=== PATIENT | female | born 1950 | race Caucasian/White ===

== ENCOUNTER → 2018-02-22 | Outpatient (CLI) | payer OTHER ==
--- NOTE | 2018-02-22 16:44 | RAD ---
Indications: Patient fell last Wednesday in mud and twisted foot and ankle. Pain and bruising. Three-view left foot study: No acute fracture or dislocation or osteolytic process is seen. Three-view left ankle study: No acute fracture or dislocation or osteolytic process is seen. The mortise ankle joint is intact. IMPRESSION: No acute fracture. Electronically signed by: Marvel Acuna MD (02/22/2018 4:41 PM) [facility]-RM[facility]
--- NOTE | 2018-02-22 16:44 | RAD ---
Indications: Patient fell last Wednesday in mud and twisted foot and ankle. Pain and bruising. Three-view left foot study: No acute fracture or dislocation or osteolytic process is seen. Three-view left ankle study: No acute fracture or dislocation or osteolytic process is seen. The mortise ankle joint is intact. IMPRESSION: No acute fracture. Electronically signed by: Marvel Acuna MD (02/22/2018 4:41 PM) [facility]
--- NOTE | 2018-02-22 16:45 | RAD ---
Three-view left shoulder study Clinical indications: Patient fell last Wednesday and landed on left shoulder. Left shoulder pain. FINDINGS: No AC joint separation is seen. No acute fracture or dislocation or osteolytic process is evident. IMPRESSION: No acute fracture. Electronically signed by: Marvel Acuna MD (02/22/2018 4:41 PM) [facility]-H[facility]
== END | disposition home or self-care (01) ==
LOC: RAD 14:19
PROVIDERS: ATTEND Nurse Practitioner
DX: S93.402A Sprain of unspecified ligament of left ankle, initial encounter (principal); M25.572 Pain in left ankle and joints of left foot; M25.512 Pain in left shoulder; W19.XXXA Unspecified fall, initial encounter; Y93.89 Activity, other specified; Y92.89 Other specified places as the place of occurrence of the external cause; Y99.8 Other external cause status
CPT/HCPCS: 73030; 73610; 73630

== ENCOUNTER 2021-09-16 09:51 | Observation (INO) | payer OTHER, MEDICAID ==
[~2021-09-16] VITALS: Ht 154.9 cm; Wt 118.6 kg
--- NOTE | 2021-09-16 10:24 | PHYS DOC ---
Past Medical History Past Surgical History: Other Additional Past Surgical Histo: minor biopsies Adult General Chief Complaint Chief Complaint: WEAKNESS/GENERALIZED HPI HPI Patient is a 71 year old female who presents with generalized weakness. The patient lives alone and states she has had trouble going about daily activities for the last 24 hours. She has been able to ambulate from her living room or bedroom to the bathroom but has to rest before trying to go back into with either her living room or bedroom. She has had put a bit of difficulty going ev en a short distance. She does not feel short of breath, and she does not have any muscle aches or pains. She states that her muscles just feel very weak. She is not any recent trauma. No fever, chest pain, shortness of breath, cough, nausea, vomiting or abdominal pain. She started losartan fairly recently otherwise no new meds. Review of Systems Review of Systems Constitutional: Denies fever Eyes: Denies change in visual acuity or eye pain HENT: Denies sore throat Respiratory: Reports some shortness of breath with exertion, none at rest Cardiovascular: Denies chest pain GI: Denies abd pain : Denies dysuria Musculoskeletal: Denies back or extremity injury Integument: Denies rash or skin lesions Neurologic: Denies headache, focal weakness or sensory changes All other systems were reviewed and found to be within normal limits, except as documented in this note. Current Medications Current Medications Current Medications Medications (Trade) Dose Ordered Sig/[facility] Start Time Stop Time Status Last Admin Dose Admin Sodium Chloride 1,000 ml @ 1,000 mls/hr 1X ONCE 09/16/21 10:30 09/16/21 11:29 DC 09/16/21 11:05 1,000 MLS/HR Allergies Allergies Allergies Coded Allergies Type Severity Reaction Last Updated Verified caffeine Adverse Reaction Intermediate MIGRAINE 09/16/21 Yes codeine Adverse Reaction Intermediate MIGRAINE 09/16/21 Yes Physical Exam Physical Exam Constitutional: Well developed, well nourished, no acute distress, non-toxic appearance. HENT: Normocephalic, atraumatic, bilateral external ears normal, mucosa moist, nose normal. Eyes: EOMI, conjunctiva normal, no discharge. Neck: Normal range of motion, supple, no stridor, no meningeal signs. Cardiovascular: Regular rate and rhythm Lungs & Thorax: Bilateral breath sounds clear to auscultation Abdomen: Soft, no tenderness or obvious masses Skin: Warm, dry, no erythema, no rash. Extremities: No tenderness, no cyanosis, no clubbing, ROM intact, no edema. Neurologic: Alert and oriented, normal motor function, normal sensory function, no focal deficits noted. Psychologic: Affect normal, judgement normal, mood normal. Current Patient Data Vital Signs Vital Signs Date Time Temp Pulse Resp B/P (MAP) Pulse Ox O2 Delivery O2 Flow Rate FiO2 09/16/21 13:26 142/70 (94) Room Air 09/16/21 12:56 89 09/16/21 09:57 98.7 20 98 98.7 Lab Values Laboratory Tests Test 09/16/21 11:00 09/16/21 11:20 09/16/21 14:11 White Blood Count 24.5 x10^3/uL (4.0-11.0) H Red Blood Count 3.39 x10^6/uL (3.50-5.40) L Hemoglobin 9.6 g/dL (12.0-15.5) L Hematocrit 30.3 % (36.0-47.0) L Mean Corpuscular Volume 89 fL (79-100) Mean Corpuscular Hemoglobin 28 pg (25-35) Mean Corpuscular Hemoglobin Concent 32 g/dL (31-37) Red Cell Distribution Width 15.8 % (11.5-14.5) H Platelet Count 372 x10^3/uL (140-400) Neutrophils (%) (Auto) 73 % (31-73) Lymphocytes (%) (Auto) 20 % (24-48) L Monocytes (%) (Auto) 6 % (0-9) Eosinophils (%) (Auto) 0 % (0-3) Basophils (%) (Auto) 1 % (0-3) Neutrophils # (Auto) 18.0 x10^3/uL (1.8-7.7) H Lymphocytes # (Auto) 4.9 x10^3/uL (1.0-4.8) H Monocytes # (Auto) 1.4 x10^3/uL (0.0-1.1) H Eosinophils # (Auto) 0.0 x10^3/uL (0.0-0.7) Basophils # (Auto) 0.2 x10^3/uL (0.0-0.2) Segmented Neutrophils % 71 % (35-66) H Band Neutrophils % 3 % (0-9) Lymphocytes % 19 % (24-48) L Monocytes % 7 % (0-10) Platelet Estimate Adequate (ADEQUATE) Anisocytosis Slight Prothrombin Time 14.0 SEC (11.7-14.0) Prothrombin Time INR 1.1 (0.8-1.1) Activated Partial Thromboplast Time 32 SEC (24-38) D-Dimer (Tori) 0.67 ug/mlFEU (0.00-0.50) H Sodium Level 142 mmol/L (136-145) Potassium Level 5.0 mmol/L (3.5-5.1) Chloride Level 105 mmol/L (98-107) Carbon Dioxide Level 25 mmol/L (21-32) Anion Gap 12 (6-14) Blood Urea Nitrogen 55 mg/dL (7-20) H Creatinine 1.6 mg/dL (0.6-1.0) H Estimated GFR (Cockcroft-Gault) 31.9 BUN/Creatinine Ratio 34 (6-20) H Glucose Level 89 mg/dL (70-99) Lactic Acid Level 2.0 mmol/L (0.4-2.0) Calcium Level 9.7 mg/dL (8.5-10.1) Magnesium Level 2.2 mg/dL (1.8-2.4) Total Bilirubin 0.2 mg/dL (0.2-1.0) Aspartate Amino Transferase (AST) 10 U/L (15-37) L Alanine Aminotransferase (ALT) 21 U/L (14-59) Alkaline Phosphatase 65 U/L (46-116) Troponin I High Sensitivity 29 ng/L (4-50) OS-Bmt-M-Type Natriuretic Peptide 149 pg/mL (0-124) H Total Protein 7.0 g/dL (6.4-8.2) Albumin 3.7 g/dL (3.4-5.0) Albumin/Globulin Ratio 1.1 (1.0-1.7) Lipase 146 U/L (73-393) Urine Collection Type Unknown Urine Color (Auto) Light yellow Urine Turbidity Hazy Urine pH (Auto) 5.5 (<5.0-8.0) Urine Specific [place] 1.023 (1.000-1.030) Urine Protein (Auto) 30 mg/dL (Negative) Urine Glucose (Auto)(UA) Negative mg/dL (Negative) Urine Ketones (Auto) Negative mg/dL (Negative) Urine Blood (Auto) Negative (Negative) Urine Nitrite Negative (Negative) Urine Bilirubin (Auto) Negative (Negative) Urine Urobilinogen (Auto) Normal mg/dL (Normal) Urine Leukocyte Esterase (Auto) Negative (Negative) Urine RBC Occ /HPF (0-2) Urine WBC 5-10 /HPF (0-4) Urine Squamous Epithelial Cells Mod /LPF Urine Transitional Epithelial Cells Few /LPF Urine Bacteria Few /HPF (0-FEW) Urine Hyaline Casts Few /HPF Urine Mucus Mod /LPF Influenza Type A Antigen Negative (NEGATIVE) Influenza Type B Antigen Negative (NEGATIVE) SARS-CoV-2 Antigen (Rapid) Negative (NEGATIVE) Laboratory Tests 09/16/21 11:00 Laboratory Tests 09/16/21 11:00 EKG EKG [] Interpretation Time: Twelve-lead EKG demonstrates a sinus rhythm with a rate of 96. MT, QRS and QT corrected intervals are within normal limits. No ST segment elevation or depr ession other than 1/2 mm in inferior lead III of ST elevation which is only in that single lead. Q wave also present in that lead. Radiology/Procedures Radiology/Procedures [] Impressions: ATIENT: ZACK PRESCOTTACCOUNT: [id number]#: [id number] : 1950 LOCATION: ER AGE: 71 SEX: F EXAM STATUS: REG ER ORD. PHYSICIAN: MOR GARCIA MD REASON: weakness PROCEDURE: CHEST AP ONLY EXAMINATION: Chest radiograph. VIEWS: Single AP view of the chest COMPARISON: None INDICATION:71 years, Female, weakness. FINDINGS: Normal cardiomediastinal silhouette. No focal consolidation. No pleural effusion or pneumothorax. No acute osseous process. IMPRESSION: No acute cardiopulmonary process. Electronically signed by: Wendie Templeton DO (09/16/2021 10:44 AM) [id number] DICTATED and SIGNED BY: WENDIE TEMPLETON DO DATE: 09/16/21 1043 Course & Med Decision Making Course & Med Decision Making Pertinent Labs and Imaging studies reviewed. (See chart for details) [] This is a 71-year-old female who presents with generalized weakness. On her work-up she has a hemoglobin of 9.6, white cell count of 24.5, BUN of 53 and a creatinine of 1.6. I am a bit suspicious of an upper GI bleed given her anemia and elevated BUN/creatinine ratio. Alternatively she may be dehydrated. Order Protonix as well as IV fluids. Her leukocytosis is somewhat concerning as well. She does not show any evidence of an infectious process currently but will keep her in the hospital for observation and further testing is indicated. At this time she is in stable condition. Dragon Disclaimer Dragon Disclaimer This electronic medical record was generated, in whole or in part, using a voice recognition dictation system. Departure Departure Impression: Primary Impression: Anemia Additional Impressions: Elevated BUN Elevated serum creatinine Generalized weakness Leukocytosis Disposition: ADMITTED INPATIENT Condition: STABLE Referrals: YISEL AUGUSTIN MD (PCP) Problem Qualifiers MOR GARCIA MD Sep 16, 2021 10:24
[2021-09-16] MEDS ORDERED: IV NORMAL SALINE 1000ML BAG 1,000 ML IV ONE ×2 (10:30→20:00)
--- NOTE | 2021-09-16 10:46 | RAD ---
EXAMINATION: Chest radiograph. VIEWS: Single AP view of the chest COMPARISON: None INDICATION:71 years, Female, weakness. FINDINGS: Normal cardiomediastinal silhouette. No focal consolidation. No pleural effusion or pneumothorax. No acute osseous process. IMPRESSION: No acute cardiopulmonary process. Electronically signed by: Pato Templeton DO (09/16/2021 10:44 AM) [id number]
[2021-09-16 11:08] LABS: BASO # 0.2 x10^3/uL (0.0-0.2); BASO % 1 % (0-3); EOS % 0 % (0-3); HEMATOCRIT 30.3 % (36.0-47.0); HEMOGLOBIN 9.6 g/dL (12.0-15.5); LYMPH # 4.9 x10^3/uL (1.0-4.8); LYMPH % 20 % (24-48); MEAN CORPUSCULAR HEMOGLOBIN 28 pg (25-35); MEAN CORPUSCULAR HGB CONC 32 g/dL (31-37); MEAN CORPUSCULAR VOLUME 89 fL (79-100); MONO # 1.4 x10^3/uL (0.0-1.1); MONO % 6 % (0-9); NEUT % 73 % (31-73); PLATELET COUNT 372 x10^3/uL (140-400); RED BLOOD COUNT 3.39 x10^6/uL (3.50-5.40); RED CELL DISTRIBUTION WIDTH 15.8 % (11.5-14.5); WHITE BLOOD COUNT 24.5 x10^3/uL (4.0-11.0)
[2021-09-16 11:29] LABS: CALCIUM 9.7 mg/dL (8.5-10.1); CREATININE 1.6 mg/dL (0.6-1.0); GFR 31.9
[2021-09-16 11:43] LABS: ALBUMIN 3.7 g/dL (3.4-5.0); ALBUMIN/GLOBULIN RATIO 1.1 (1.0-1.7); D-DIMER 0.67 ug/mlFEU (0.00-0.50); MAGNESIUM 2.2 mg/dL (1.8-2.4); TOTAL BILIRUBIN 0.2 mg/dL (0.2-1.0)
[2021-09-16 11:47] LABS: BACTERIA,URINE FEW /HPF (0-FEW); HYALINE CASTS, URINE FEW /HPF; RBC,URINE OCC /HPF (0-2)
[2021-09-16 12:41] LABS: % BANDS 3 % (0-9); % LYMPHS 19 % (24-48); % MONOS 7 % (0-10); % SEGS 71 % (35-66); ANISOCYTOSIS SLIGHT; PLT ESTIMATE ADEQUATE (ADEQUATE)
--- NOTE | 2021-09-16 13:40 | EKG ---
[facility] [address] [place] [address] Test Date: 2021-09-16 Test Time: 10:06:10 Pat Name: ZACK PRESCOTT Department: Room: Gender: F Functional Director: : 1950 Requested By: MOR GARCIA Order Number: [id number] Reading MD: Torey Muñoz Measurements Intervals [place] Rate: 96 P: -18 AK: 156 QRS: 18 QRSD: 80 T: 49 QT: 314 QTc: 403 Interpretive Statements SINUS RHYTHM Electronically Signed On 09-20-2021 21:45:26 CDT by Torey Muñoz
[2021-09-16 15:22] LABS: INFLUENZA A PATIENT NEGATIVE (NEGATIVE); INFLUENZA B PATIENT NEGATIVE (NEGATIVE)
[2021-09-16] MEDS ORDERED: PANTOPRAZOLE IV PUSH 40 MG VIAL. IVP ONE (17:00)
[2021-09-16] MEDS ORDERED: PANTOPRAZOLE SODIUM IV DRIP 80 MG in IV NORMAL SALINE 100ML 100 ML IV ONE (18:00)
[2021-09-16 19:00] VITALS: BP 119/74
--- NOTE | 2021-09-16 19:51 | PDOC1 ---
History and Physical Date of Admission Date of Admission DATE: 09/16/21 TIME: 19:36 Identification/Chief Complaint Chief Complaint Generalized weakness Source Source: Patient History of Present Illness History of Present Illness Patient is a 71-year-old female with past medical history depression, arthritis, HTN, HLD, neuropathy, who presents to the ED with complaints of generalized weakness since yesterday. Patient lives alone and reports that she has had trouble performing her activities of daily living over the past 24 hours. She reports even having difficulty walking short distances and will walk into the bathroom. She denies any shortness of breath, muscle aches, muscle pain. She denies any fevers, chills, chest pain, nausea, vomiting, abdominal pain, or recent illness. Labs on admission were significant for WBC 24.5, hemoglobin 9.6, hematocrit 30.3, BUN 55, creatinine 1.6, D-dimer 0.67. In the ED she received 1 L of normal saline. The time my evaluation she states she is feeling better, "not as lightheaded" as before. Will admit patient for further medical management. Past Medical History Past Medical History Neuropathy, depression, arthritis, HLD, HTN Past Surgical History Past Surgical History Skin biopsies Family History Family History DM2 Social History Smoke: No ALCOHOL: none Drugs: None Current Problem List Problem List Problems Medical Problems: (1) Anemia Status: Acute (2) Elevated BUN Status: Acute (3) Elevated serum creatinine Status: Acute (4) Generalized weakness Status: Acute (5) Leukocytosis Status: Acute Current Medications Current Medications Current Medications Sodium Chloride 1,000 ml @ 1,000 mls/hr 1X ONCE IV Last administered on 09/16/21at 11:05; Start 09/16/21 at 10:30; Stop 09/16/21 at 11:29; Status DC Pantoprazole Sodium (PROTONIX VIAL for IV PUSH) 80 mg 1X ONCE IVP Last administered on 09/16/21at 17:28; Start 09/16/21 at 17:00; Stop 09/16/21 at 17:01; Status DC Pantoprazole Sodium 80 mg/ Sodium Chloride 100 ml @ 10 mls/hr 1X ONCE IV Last administered on 09/16/21at 17:57; Start 09/16/21 at 18:00; Stop 09/17/21 at 03:59 Allergies Allergies: Coded Allergies: caffeine (Verified Adverse Reaction, Intermediate, MIGRAINE, 09/16/21) codeine (Verified Adverse Reaction, Intermediate, MIGRAINE, 09/16/21) ROS Review of System GENERAL: Generalized weakness. No history of weight change or fevers. SKIN: No bruising, hair changes or rashes. EYES: No blurred, double or loss of vision. NOSE AND THROAT: No history of nosebleeds, hoarseness or sore throat. HEART: Denies chest pain, denies palpitations. LUNGS: Denies cough, hemoptysis, wheezing or shortness of breath. GASTROINTESTINAL: Denies nausea, vomiting, abdominal pain. GENITOURINARY: Denies dysuria, frequency, urgency, hematuria. NEUROLOGIC: Denies history of numbness, tingling, tremor or weakness. PSYCHIATRIC: Denies anxiety, denies depression. ENDOCRINE: No history of heat or cold intolerance, polyuria or polydipsia. EXTREMITIES: Muscle weakness and some joint pain from her chronic arthritis. Denies pain on walking or stiffness. Physical Exam Physical Exam General: Alert, Oriented X3, Cooperative, No acute distress. Morbidly obese. HEENT: PERRLA, EOMI Lungs: Clear to auscultation, Normal air movement Heart: RRR, no murmurs Cardiovascular: S1, S2 Abdomen: Normal bowel sounds, Soft, No tenderness Extremities: No clubbing, No cyanosis Skin: No rashes, No significant lesion Neuro: Normal speech, Normal tone, Sensation intact Psych/Mental Status: Mental status NL, Mood NL Vitals Vitals Vital Signs Date Time Temp Pulse Resp B/P (MAP) Pulse Ox O2 Delivery O2 Flow Rate FiO2 09/16/21 18:00 89 20 136/67 (90) 97 Room Air 09/16/21 09:57 98.7 98.7 Labs Labs Laboratory Tests Test 09/16/21 11:00 09/16/21 11:20 09/16/21 14:11 White Blood Count 24.5 x10^3/uL (4.0-11.0) Red Blood Count 3.39 x10^6/uL (3.50-5.40) Hemoglobin 9.6 g/dL (12.0-15.5) Hematocrit 30.3 % (36.0-47.0) Mean Corpuscular Volume 89 fL (79-100) Mean Corpuscular Hemoglobin 28 pg (25-35) Mean Corpuscular Hemoglobin Concent 32 g/dL (31-37) Red Cell Distribution Width 15.8 % (11.5-14.5) Platelet Count 372 x10^3/uL (140-400) Neutrophils (%) (Auto) 73 % (31-73) Lymphocytes (%) (Auto) 20 % (24-48) Monocytes (%) (Auto) 6 % (0-9) Eosinophils (%) (Auto) 0 % (0-3) Basophils (%) (Auto) 1 % (0-3) Neutrophils # (Auto) 18.0 x10^3/uL (1.8-7.7) Lymphocytes # (Auto) 4.9 x10^3/uL (1.0-4.8) Monocytes # (Auto) 1.4 x10^3/uL (0.0-1.1) Eosinophils # (Auto) 0.0 x10^3/uL (0.0-0.7) Basophils # (Auto) 0.2 x10^3/uL (0.0-0.2) Segmented Neutrophils % 71 % (35-66) Band Neutrophils % 3 % (0-9) Lymphocytes % 19 % (24-48) Monocytes % 7 % (0-10) Platelet Estimate Adequate (ADEQUATE) Anisocytosis Slight Prothrombin Time 14.0 SEC (11.7-14.0) Prothromb Time International Ratio 1.1 (0.8-1.1) Activated Partial Thromboplast Time 32 SEC (24-38) D-Dimer (Tori) 0.67 ug/mlFEU (0.00-0.50) Sodium Level 142 mmol/L (136-145) Potassium Level 5.0 mmol/L (3.5-5.1) Chloride Level 105 mmol/L (98-107) Carbon Dioxide Level 25 mmol/L (21-32) Anion Gap 12 (6-14) Blood Urea Nitrogen 55 mg/dL (7-20) Creatinine 1.6 mg/dL (0.6-1.0) Estimated GFR (Cockcroft-Gault) 31.9 BUN/Creatinine Ratio 34 (6-20) Glucose Level 89 mg/dL (70-99) Lactic Acid Level 2.0 mmol/L (0.4-2.0) Calcium Level 9.7 mg/dL (8.5-10.1) Magnesium Level 2.2 mg/dL (1.8-2.4) Total Bilirubin 0.2 mg/dL (0.2-1.0) Aspartate Amino Transf (AST/SGOT) 10 U/L (15-37) Alanine Aminotransferase (ALT/SGPT) 21 U/L (14-59) Alkaline Phosphatase 65 U/L (46-116) Troponin I High Sensitivity 29 ng/L (4-50) VG-Osl-V-Type Natriuretic Peptide 149 pg/mL (0-124) Total Protein 7.0 g/dL (6.4-8.2) Albumin 3.7 g/dL (3.4-5.0) Albumin/Globulin Ratio 1.1 (1.0-1.7) Lipase 146 U/L (73-393) Urine Collection Type Unknown Urine Color (Auto) Light yellow Urine Turbidity Hazy Urine pH (Auto) 5.5 (<5.0-8.0) Urine Specific [place] 1.023 (1.000-1.030) Urine Protein (Auto) 30 mg/dL (Negative) Urine Glucose (Auto)(UA) Negative mg/dL (Negative) Urine Ketones (Auto) Negative mg/dL (Negative) Urine Blood (Auto) Negative (Negative) Urine Nitrite Negative (Negative) Urine Bilirubin (Auto) Negative (Negative) Urine Urobilinogen (Auto) Normal mg/dL (Normal) Urine Leukocyte Esterase (Auto) Negative (Negative) Urine RBC Occ /HPF (0-2) Urine WBC 5-10 /HPF (0-4) Urine Squamous Epithelial Cells Mod /LPF Urine Transitional Epithelial Cells Few /LPF Urine Bacteria Few /HPF (0-FEW) Urine Hyaline Casts Few /HPF Urine Mucus Mod /LPF Influenza Type A Antigen Negative (NEGATIVE) Influenza Type B Antigen Negative (NEGATIVE) SARS-CoV-2 Antigen (Rapid) Negative (NEGATIVE) Laboratory Tests Test 09/16/21 11:00 09/16/21 11:20 09/16/21 14:11 White Blood Count 24.5 x10^3/uL (4.0-11.0) Red Blood Count 3.39 x10^6/uL (3.50-5.40) Hemoglobin 9.6 g/dL (12.0-15.5) Hematocrit 30.3 % (36.0-47.0) Mean Corpuscular Volume 89 fL (79-100) Mean Corpuscular Hemoglobin 28 pg (25-35) Mean Corpuscular Hemoglobin Concent 32 g/dL (31-37) Red Cell Distribution Width 15.8 % (11.5-14.5) Platelet Count 372 x10^3/uL (140-400) Neutrophils (%) (Auto) 73 % (31-73) Lymphocytes (%) (Auto) 20 % (24-48) Monocytes (%) (Auto) 6 % (0-9) Eosinophils (%) (Auto) 0 % (0-3) Basophils (%) (Auto) 1 % (0-3) Neutrophils # (Auto) 18.0 x10^3/uL (1.8-7.7) Lymphocytes # (Auto) 4.9 x10^3/uL (1.0-4.8) Monocytes # (Auto) 1.4 x10^3/uL (0.0-1.1) Eosinophils # (Auto) 0.0 x10^3/uL (0.0-0.7) Basophils # (Auto) 0.2 x10^3/uL (0.0-0.2) Segmented Neutrophils % 71 % (35-66) Band Neutrophils % 3 % (0-9) Lymphocytes % 19 % (24-48) Monocytes % 7 % (0-10) Platelet Estimate Adequate (ADEQUATE) Anisocytosis Slight Prothrombin Time 14.0 SEC (11.7-14.0) Prothromb Time International Ratio 1.1 (0.8-1.1) Activated Partial Thromboplast Time 32 SEC (24-38) D-Dimer (Tori) 0.67 ug/mlFEU (0.00-0.50) Sodium Level 142 mmol/L (136-145) Potassium Level 5.0 mmol/L (3.5-5.1) Chloride Level 105 mmol/L (98-107) Carbon Dioxide Level 25 mmol/L (21-32) Anion Gap 12 (6-14) Blood Urea Nitrogen 55 mg/dL (7-20) Creatinine 1.6 mg/dL (0.6-1.0) Estimated GFR (Cockcroft-Gault) 31.9 BUN/Creatinine Ratio 34 (6-20) Glucose Level 89 mg/dL (70-99) Lactic Acid Level 2.0 mmol/L (0.4-2.0) Calcium Level 9.7 mg/dL (8.5-10.1) Magnesium Level 2.2 mg/dL (1.8-2.4) Total Bilirubin 0.2 mg/dL (0.2-1.0) Aspartate Amino Transf (AST/SGOT) 10 U/L (15-37) Alanine Aminotransferase (ALT/SGPT) 21 U/L (14-59) Alkaline Phosphatase 65 U/L (46-116) Troponin I High Sensitivity 29 ng/L (4-50) BW-Hvx-B-Type Natriuretic Peptide 149 pg/mL (0-124) Total Protein 7.0 g/dL (6.4-8.2) Albumin 3.7 g/dL (3.4-5.0) Albumin/Globulin Ratio 1.1 (1.0-1.7) Lipase 146 U/L (73-393) Urine Collection Type Unknown Urine Color (Auto) Light yellow Urine Turbidity Hazy Urine pH (Auto) 5.5 (<5.0-8.0) Urine Specific [place] 1.023 (1.000-1.030) Urine Protein (Auto) 30 mg/dL (Negative) Urine Glucose (Auto)(UA) Negative mg/dL (Negative) Urine Ketones (Auto) Negative mg/dL (Negative) Urine Blood (Auto) Negative (Negative) Urine Nitrite Negative (Negative) Urine Bilirubin (Auto) Negative (Negative) Urine Urobilinogen (Auto) Normal mg/dL (Normal) Urine Leukocyte Esterase (Auto) Negative (Negative) Urine RBC Occ /HPF (0-2) Urine WBC 5-10 /HPF (0-4) Urine Squamous Epithelial Cells Mod /LPF Urine Transitional Epithelial Cells Few /LPF Urine Bacteria Few /HPF (0-FEW) Urine Hyaline Casts Few /HPF Urine Mucus Mod /LPF Influenza Type A Antigen Negative (NEGATIVE) Influenza Type B Antigen Negative (NEGATIVE) SARS-CoV-2 Antigen (Rapid) Negative (NEGATIVE) Images Images PATIENT: ZACK PRESCOTT ACCOUNT: [id number] : 1950 LOCATION: ER AGE: 71 SEX: F EXAM STATUS: REG ER ORD. PHYSICIAN: MOR GARCIA MD REASON: weakness PROCEDURE: CHEST AP ONLY EXAMINATION: Chest radiograph. VIEWS: Single AP view of the chest COMPARISON: None INDICATION:71 years, Female, weakness. FINDINGS: Normal cardiomediastinal silhouette. No focal consolidation. No pleural effusion or pneumothorax. No acute osseous process. IMPRESSION: No acute cardiopulmonary process. VTE Prophylaxis Ordered VTE Prophylaxis Devices: No VTE Pharmacological Prophylaxi: Yes Assessment/Plan Assessment/Plan Generalized weakness Leukocytosis Dehydration Normocytic anemia MARIA L Physical debility Plan: Given improvement in ED, will continue IV fluids. CK and TSH pending Unsure of etiology of leukocytosis but will follow daily CBCs; if no improvement with conservative management consult hematology/oncology for further work-up. Given BUN/creatinine ratio, would consider GI consult for general cancer screening and GI bleed. Patient denies any knowledge of dark stools but does tell me she does not always wipe after she defecates. PT/OT FEN - Cardiac diet PPX - Lovenox FULL CODE. Patient names her brother (Mohamud Sandoval) as surrogate decision-maker. Dispo - observation for above Justifications for Admission Other Justification MAIK PAYNE MD Sep 16, 2021 19:51
[2021-09-16] MEDS ORDERED: ACETAMINOPHEN 325 MG TABLET. PO PRN (20:00)
[2021-09-16] MEDS ORDERED: MAG HYDROX/ALUMINUM HYD/SIMETH 30 ML ORAL.SUSP PO PRN (20:00)
[2021-09-16] MEDS ORDERED: ONDANSETRON PF 4 MG/2 ML VIAL. IVP PRN (20:00)
[2021-09-16] MEDS ORDERED: CALCIUM CARBONATE 500 MG TAB.CHEW PO PRN (20:00)
[2021-09-16] MEDS ORDERED: ZOLPIDEM 5 MG TABLET. PO PRN (20:00)
[2021-09-16] MEDS ORDERED: MAGNESIUM HYDROXIDE 2,400 MG/30 ML ORAL.SUSP. PO PRN (20:00)
[2021-09-16] MEDS ORDERED: HYDROcodone/APAP 5/325MG 1 TAB TABLET PO PRN (20:00)
[2021-09-16] MEDS ORDERED: DICL20GE TP (20:22)
[2021-09-16] MEDS ORDERED: LORA10TA3 PO (20:22)
[2021-09-16] MEDS ORDERED: AMMO226L TP (20:22)
[2021-09-16] MEDS ORDERED: NAPR-514 PO (20:22)
[2021-09-16] MEDS ORDERED: CALC-231 PO (20:22)
[2021-09-16] MEDS ORDERED: HYDR-2765 PO (20:22)
[2021-09-16] MEDS ORDERED: ESOM20CA PO (20:22)
[2021-09-16] MEDS ORDERED: CHOL5000 PO (20:22)
[2021-09-16] MEDS ORDERED: CYCL10TA19 PO (20:22)
[2021-09-16] MEDS ORDERED: ARIP5TAB13 PO (20:22)
[2021-09-16] MEDS ORDERED: ACET500T68 PO (20:22)
[2021-09-16] MEDS ORDERED: [UNRECOGNIZED DRUG - CODE] TP (20:22)
[2021-09-16] MEDS ORDERED: MULT-154 PO (20:22)
[2021-09-16] MEDS ORDERED: DULO60CA7 PO (20:22)
[2021-09-16] MEDS ORDERED: CRESTOR40 MG PO (20:22)
[2021-09-16] MEDS ORDERED: LOSA-73 PO (20:22)
[2021-09-16] MEDS ORDERED: SOLI5TAB2 PO (20:22)
[2021-09-16] MEDS ORDERED: GABA300C18 PO (20:22)
[2021-09-16] MEDS ORDERED: OMEG1CAP38 PO (20:22)
[2021-09-16] MEDS ORDERED: LISI10TA16 PO (20:22)
[2021-09-16] MEDS ORDERED: CYCLOBENZAPRINE 10 MG TABLET. PO PRN (22:30)
[2021-09-16] MEDS ORDERED: HYDROcodone/APAP 7.5/325MG 1 TAB TABLET PO PRN (22:30)
[2021-09-16] MEDS ORDERED: ACETAMINOPHEN 500 MG TABLET PO PRN (22:30)
[2021-09-16] MEDS ORDERED: CETIRIZINE HCL 10 MG TABLET. PO PRN (22:45)
[2021-09-16 23:00] VITALS: BP 118/68
[2021-09-16] MEDS ORDERED: ATORVASTATIN CALCIUM 40 MG TABLET. PO SCH (23:00)
[2021-09-16] MEDS ORDERED: ARIPiprazole 5 MG TABLET PO SCH (23:00)
[2021-09-17] MEDS: GABAPENTIN 300 MG CAPSULE. PO SCH ×2 (01:32→09:14)
[2021-09-17] MEDS: ENOXAPARIN 40 MG/0.4 ML SYRINGE. SQ SCH ×2 (01:35→09:00)
[2021-09-17] MEDS: DICLOFENAC SODIUM 1% TOPICAL GEL 100GM TUBE. TP SCH ×2 (01:36→09:00)
[2021-09-17 03:00] VITALS: BP 132/75
[2021-09-17 06:16] LABS: HEMATOCRIT 22.6 % (36.0-47.0); HEMOGLOBIN 7.2 g/dL (12.0-15.5); RED BLOOD COUNT 2.52 x10^6/uL (3.50-5.40); RED CELL DISTRIBUTION WIDTH 15.7 % (11.5-14.5); WHITE BLOOD COUNT 16.3 x10^3/uL (4.0-11.0)
[2021-09-17 06:30] LABS: CALCIUM 8.4 mg/dL (8.5-10.1); CREATININE 1.3 mg/dL (0.6-1.0); GFR 40.5; POTASSIUM 4.1 mmol/L (3.5-5.1)
[2021-09-17 07:00] VITALS: BP 141/75
[2021-09-17] MEDS ORDERED: PANTOPRAZOLE 40 MG TABLET.DR. PO SCH (07:30)
[2021-09-17] MEDS ORDERED: DULoxetine HCL 30 MG CAPSULE.DR PO SCH (09:00)
[2021-09-17] MEDS ORDERED: LOSARTAN POTASSIUM 50 MG TABLET. PO SCH (09:00)
[2021-09-17] MEDS ORDERED: OXYBUTYNIN CHLORIDE 5 MG TABLET PO SCH (09:00)
[2021-09-17] MEDS ORDERED: NAPROXEN 500 MG TABLET PO SCH (09:00)
[2021-09-17] MEDS ORDERED: CHOLECALCIFEROL (VITAMIN D3) 5,000 UNIT CAPSULE PO SCH (09:00)
[2021-09-17] MEDS ORDERED: MULTIVITAMIN with MINERAL TABLET. PO SCH (09:00)
--- NOTE | 2021-09-17 10:48 | SNU/HH DC ---
DISCHARGE WITH HOME HEALTH DISCHARGE INFORMATION: Final Diagnosis: Problems Medical Problems: (1) Anemia Status: Acute (2) Elevated BUN Status: Acute (3) Elevated serum creatinine Status: Acute (4) Generalized weakness Status: Acute (5) Leukocytosis Status: Acute Condition on Discharge: Stable CODE STATUS: Code Status: Full HOME HEALTH: Face to Face: I certify this patient is under my care and that I, or a nurse practitioner or physician's assistant store director working with me, had a face to face encounter that meets t he physician face to face encounter requirements with this patient on []. Medical Complications: Other (Weakness/anemia) Retirement For: Assess & Educate Safety RN For Eval/Treatment: Yes Physical Therapy For: Evalulation/Treatment Occupational Therapy For: Evaluation/Treatment Home Health Aide For: Self-care [employer] For: Community Resources Pt Meets Homebound Status: Poor coordination w/ amb. POST DISCHARGE ORDERS: DIET AFTER DISCHARGE: Cardiac CERTIFICATION STATEMENT: Certification Statement: Certification Statement: Based on the above finding, I certify that this patient is confined to the home and needs intermittent jail care, physical therapy and/or speech therapy, or continues to need occupational therapy.~ This patient is under my care, and I have initiated the establishment of the plan of care.~ This patient will be followed by myself or a community physician who will periodically review the plan of care. Home Meds Reported Medications Losartan Potassium (LOSARTAN POTASSIUM) 50 Mg Tablet, 50 MG PO DAILY for HYPERTENSION, TAB 09/16/21 Diclofenac Sodium (Voltaren Arthritis Pain) 20 Gm Gel..gram., 1 TONJA TP QID for arthritis, EACH 09/16/21 Ammonium Lactate (Lac-Hydrin Five) 226 Gm Lotion, 1 TONJA TP TID for dry skin, MISC 09/16/21 Calcium Carbonate/Simethicone (ANTACID-ANTIGAS TAB CHEW) 1 Each Tab.chew, 1 EACH PO QODAY for antacid, TAB.CHEW 09/16/21 Coconut Oil/Beeswax/Safflower (LIP BALM BASE NATURAL) 90 Gm Oint...g., 1 TONJA TP PRN 3-4XD for dry lips, MISC 09/16/21 Loratadine (LORATADINE) 10 Mg Tablet, 10 MG PO DAILY PRN for ALLERGIES, TAB 09/16/21 Cholecalciferol (Vitamin D3) (Vitamin D3 ) 125 Mcg Capsule, 125 MCG PO DAILY for SUPPLEMENT, CAP 5,000 UNITS = 125 MCG 09/16/21 Naproxen (NAPROXEN) 500 Mg Tablet, 500 MG PO DAILY for arthritis, TAB 09/16/21 [place]-3 Fatty Acids/Fish Oil (OMEGA 3 FISH OIL SOFTGEL) 1 Each Capsule.dr, 1 EACH PO DAILY for supplement, CAP 09/16/21 Multivitamin (ONE-A-DAY ESSENTIAL) 1 Each Tablet, 1 EACH PO DAILY for supplement, TAB 09/16/21 Esomeprazole Magnesium (NEXIUM CAPSULE) 20 Mg Capsule.dr, 20 MG PO DAILY for GERD, #30 CAP 0 Refills 09/16/21 Acetaminophen (ACETAMINOPHEN) 500 Mg Tablet, 500 MG PO PRN Q6HRS PRN for PAIN, TAB 09/16/21 Rosuvastatin Calcium (CRESTOR) 40 Mg Tablet, 20 MG PO HS for FOR CHOLESTEROL, #30 TAB 0 Refills 09/16/21 Aripiprazole (ABILIFY) 5 Mg Tablet, 5 MG PO HS for "incontinence", TAB 09/16/21 Solifenacin Succinate (VESICARE) 5 Mg Tablet, 5 MG PO DAILY for depression, TAB 09/16/21 Duloxetine Hcl (CYMBALTA) 60 Mg Capsule.dr, 60 MG PO DAILY for depression, CAP 09/16/21 Hydrocodone Bit/Acetaminophen (HYDROCODONE-APAP 7.5-325 ) 1 Tab Tablet, 1 TAB PO PRN Q6HRS PRN for PAIN, TAB 0 Refills 09/16/21 Cyclobenzaprine Hcl (CYCLOBENZAPRINE HCL) 10 Mg Tablet, 10 MG PO TID PRN for PAIN, TAB 09/16/21 Gabapentin (GABAPENTIN ) 300 Mg Capsule, 300 MG PO TID for NEUROGENIC PAIN, CAP 09/16/21 JOSELO MCDONOUGH III DO Sep 17, 2021 10:48
[2021-09-17 11:00] VITALS: BP 126/52
--- NOTE | 2021-09-17 13:27 | DS ---
DATE OF DISCHARGE: 09/17/2021 ADMITTING DIAGNOSIS: Weakness and dehydration. DISCHARGE DIAGNOSES: Resolving weakness, resolving dehydration, history of hyperlipidemia, hypertension, neuropathy, arthritis, depression, chronic anemia. HOSPITAL COURSE: The patient is a pleasant elderly female who presented last night with weakness. She was dehydrated. She was dizzy and weak. We gave her IV fluids, did some physical therapy and occupational therapy. Today, I saw and examined her. She is back to her baseline and wants to go home. We plan to discharge with close outpatient followup. DISPOSITION: Home. ACTIVITY: As tolerated. DIET: Low sodium. DISCHARGE MEDICATIONS: Please see the MRAD. Tylenol, Lac-Hydrin cream, Abilify 5 at bedtime, calcium, vitamin D, coconut oil, cyclobenzaprine 10 t.i.d., diclofenac cream, Cymbalta 60 daily, Nexium 20 a day, gabapentin 300 t.i.d., hydrocodone 7.5 q. 4 p.r.n., loratadine 10 a day, losartan 50 a day, multiple vitamins, naproxen 500 daily, p.r.n., omega 3 fish oils, Crestor 20 a day, and VESIcare. FOLLOWUP: We have arranged for her to see a GI for her anemia (her hemoglobin went from 9 to 7, but that was with a lot of IV fluids and she is not passing any blood). TOTAL TIME: 34 minutes. RADHA/ARAMIS/[facility] [place]: RADHA/samuel TID: [id number]
== END 2021-09-17 13:15 | disposition home or self-care (01) ==
LOC: ER 09:51 → 2 NORTH 16:35
PROVIDERS: ADMIT Family Medicine; ATTEND Family Medicine
DX: D64.9 Anemia, unspecified (principal); Z20.822 Contact with and (suspected) exposure to COVID-19; R53.1 Weakness; R42 Dizziness and giddiness; D72.829 Elevated white blood cell count, unspecified; I10 Essential (primary) hypertension; N17.9 Acute kidney failure, unspecified; E78.5 Hyperlipidemia, unspecified; E86.0 Dehydration; R79.89 Other specified abnormal findings of blood chemistry; R77.8 Other specified abnormalities of plasma proteins; Z79.899 Other long term (current) drug therapy; Z98.890 Other specified postprocedural states
CPT/HCPCS: 36415; 71045; 80048; 80053; 81001; 82550; 83605; 83690; 83735; 83880; 84443; 84484; 85007; 85025; 85027; 85379; 85610; 85730; 87086; 87428; 93005; 96361; 96365; 96366; 96372; 96376; 97166; 97535; 99285; C9113; G0378; J1650; J7030; G0379